=== PATIENT | male | born 1965 | race Native Hawaiian/Other Pacific Islander ===

== ENCOUNTER 2018-12-18 20:17 | Emergency (ER) | payer BC ==
[2018-12-18] MEDS ORDERED: DIPH/PERTUSS(ACELL)/TETANUS VAC/PF 0.5 ML SYR (>=10YO) IM ONE (20:49)
--- NOTE | 2018-12-18 20:51 | ER Document Report ---
ED Medical Screen (RME) - General Chief Complaint: Foreign Body Stated Complaint: LEFT THUMB INJURY Time Seen by Provider: 12/18/18 20:44 Mode of Arrival: Ambulatory Notes: Patient states that he was fishing and got a in the left thumb about 7 hours ago. Patient states that he wanted to finish fishing and then cooked dinner. Patient states that he attempted to remove the fishhook himself unsuccessfully. Patient did cut the hook close to the skin surface. Tetanus immunization is not up-to-date. I have greeted and performed a rapid initial assessment of this patient. A comprehensive ED assessment and evaluation of the patient, analysis of test results and completion of the medical decision making process will be conducted by additional ED providers. TRAVEL OUTSIDE OF THE [place] IN LAST 30 DAYS: No - Related Data Allergies/Adverse Reactions: No Known Allergies Allergy (Verified 12/18/18 20:42) Past Medical History - Social History Frequency of alcohol use: Occasional Drug Abuse: None Physical Exam - Vital signs Vitals: Temp Pulse Resp BP Pulse Ox 97.9 F 88 18 166/91 H 95 12/18/18 20:33 12/18/18 20:33 12/18/18 20:33 12/18/18 20:33 12/18/18 20:33 - General Notes: Metallic foreign body consistent with reported history of fishhook to left thumb Course - Vital Signs Vital signs: Temp Pulse Resp BP Pulse Ox 97.9 F 88 18 166/91 H 95 12/18/18 20:33 12/18/18 20:33 12/18/18 20:33 12/18/18 20:33 12/18/18 20:33
--- NOTE | 2018-12-18 21:18 | RADIOLOGY REPORT (SQ) ---
XR FINGERS CLINICAL STATEMENT: Fish hook to left thumb COMPARISON: None FINDINGS: Bony alignment is anatomic. There is no fracture or dislocation. There is a small radiopaque foreign body consistent with fishhook in the soft tissues of the left thumb, approximately 1 cm long. It is adjacent to the interphalangeal joint.
[2018-12-18] MEDS ORDERED: BUPIVACAINE HCL 0.5 % INJ/PF 30 ML SDV INJ ONE (23:00)
[2018-12-18] MEDS ORDERED: LIDOCAINE 1% INJ (10 MG/ML) 10 ML MDV INJ ONE (23:00)
[2018-12-19] MEDS ORDERED: DOXYCYCLINE HYCLATE 100 MG TABLET PO ONE (00:05)
--- NOTE | 2018-12-19 00:05 | ER Document Report ---
ED Foreign Body - General Chief Complaint: Foreign Body Stated Complaint: LEFT THUMB INJURY Time Seen by Provider: 12/18/18 20:44 Mode of Arrival: Ambulatory Notes: Patient states that he was fishing and got a in the left thumb about 7 hours ago. Patient states that he wanted to finish fishing and then cooked dinner. Patient states that he attempted to remove the fishhook himself unsuccessfully. Patient did cut the hook close to the skin surface. Tetanus immunization is not up-to-date. Patient was saltwater fishing. Patient was offered pain medication, he declined. TRAVEL OUTSIDE OF THE [place] IN LAST 30 DAYS: No - Related Data Allergies/Adverse Reactions: No Known Allergies Allergy (Verified 12/18/18 20:42) Past Medical History - General Information source: Patient - Social History Smoking Status: Current Every Day Smoker Frequency of alcohol use: Occasional Drug Abuse: None Family History: Reviewed & Not Pertinent Patient has suicidal ideation: No Patient has homicidal ideation: No Review of Systems - Review of Systems Constitutional: No symptoms reported EENT: No symptoms reported Cardiovascular: No symptoms reported Respiratory: No symptoms reported Gastrointestinal: No symptoms reported Genitourinary: No symptoms reported Male Genitourinary: No symptoms reported Musculoskeletal: No symptoms reported Skin: See HPI Hematologic/Lymphatic: No symptoms reported Neurological/Psychological: No symptoms reported Physical Exam - Vital signs Vitals: Temp Pulse Resp BP Pulse Ox 97.9 F 88 18 166/91 H 95 12/18/18 20:33 12/18/18 20:33 12/18/18 20:33 12/18/18 20:33 12/18/18 20:33 - Notes Notes: GENERAL: Alert, interacts well. No acute distress. HEAD: Normocephalic, atraumatic. EYES: Pupils equal, round, and reactive to light. Extraocular movements intact. ENT: Oral mucosa moist, tongue midline. NECK: Full range of motion. Supple. Trachea midline. LUNGS: Clear to auscultation bilaterally, no wheezes, rales, or rhonchi. No respiratory distress. HEART: Regular rate and rhythm. No murmur ABDOMEN: Soft, non-tender. Non-distended. Bowel sounds present in all 4 quadrants. EXTREMITIES: Moves all 4 extremities spontaneously. No edema, normal radial and dorsalis pedis pulses bilaterally. No cyanosis. BACK: no cervical, thoracic, lumbar midline tenderness. No saddle anesthesia, normal distal neurovascular exam. NEUROLOGICAL: Alert and oriented x3. Normal speech. cranial nerves II through XII grossly intact PSYCH: Normal affect, normal mood. SKIN: Warm, dry, normal turgor. Fish hook end noted anterior left thumb. Course - Re-evaluation Re-evalutation: Left thumb digitally blocked, fishhook easily removed. Patient tolerated well. Will place on doxycycline for infection risk. At this time will discharge with return precautions and follow-up recommendations. Verbal discharge instructions given a the bedside and opportunity for questions given. Medication warnings reviewed. Patient is in agreement with this plan and has verbalized understanding of return precautions and the need for primary care follow-up in the next 24-72 hours. This medical record was dictated with voice recognizing software. There may be grammatical, syntax errors that are unintended. - Vital Signs Vital signs: Temp Pulse Resp BP Pulse Ox 97.9 F 88 18 166/91 H 95 12/18/18 20:33 12/18/18 20:33 12/18/18 20:33 12/18/18 20:33 12/18/18 20:33 Procedures - Additional Procedures [place] removal Additional Procedures: Other - [place] removal Notes: 12/19/18 00:02 Digitally blocked left thumb, fishhook removal done with hemostats and scalpel. No complications. 0.25 centimeter laceration noted. Discharge - Discharge Clinical Impression: [place] injury to finger Qualifiers: Encounter type: initial encounter Laterality: left Qualified Code(s): S69.92XA - Unspecified injury of left wrist, hand and finger(s), initial encounter Condition: Stable Disposition: HOME, SELF-CARE Additional Instructions: As we discussed you have been seen and treated in the emergency department for a fishhook removal. Please take antibiotics as prescribed. Please also keep the area clean and dry. Please follow-up with your primary care provider in the next 24 to 48 hours. Return to the emergency room for any concerns. Prescriptions: Doxycycline Hyclate 100 mg PO BID #14 capsule Forms: Elevated Blood Pressure, Return to Work
[2018-12-19 00:20] VITALS: BP 134/83
== END 2018-12-19 00:38 | disposition home or self-care (01) ==
LOC: ER 20:17
PROC: 0JCK0ZZ Extirpation of Matter from Left Hand Subcutaneous Tissue and Fascia, Open Approach (ICD-10-PCS; principal; 2018-12-18)
DX: S69.92XA Unspecified injury of left wrist, hand and finger(s), initial encounter (principal); S60.352A Superficial foreign body of left thumb, initial encounter; W22.8XXA Striking against or struck by other objects, initial encounter; F17.200 Nicotine dependence, unspecified, uncomplicated
CPT/HCPCS: 73140; 90715; 10120; J3490